=== PATIENT | female | born 1985 | race Caucasian/White ===

== ENCOUNTER 2019-09-05 17:41 | Emergency (ER) | payer SELFPAY ==
[~2019-09-05] VITALS: Ht 162.6 cm; Wt 58.2 kg
[2019-09-05 17:49] VITALS: Ht 162.6 cm; Wt 58.2 kg
[2019-09-05 19:08] LABS: CALC OSMOLALITY 279 mosm/kg (275-300); CALCIUM 9.1 mg/dL (8.5-10.1); CARBON DIOXIDE 26.2 mmol/L (21.0-32.0); CHLORIDE - SERUM 105 mmol/L (98-107); GLUCOSE 90 mg/dL (74-106); POTASSIUM - SERUM 4.1 mmol/L (3.5-5.1); SODIUM 141 mmol/L (136-145); UREA NITROGEN 10 mg/dL (7-18); eGFR NON AFRICAN AMERICAN 67 mL/min (90-120)
[2019-09-05 19:25] LABS: ALBUMIN 3.4 g/dL (3.4-5.0); ALKALINE PHOSPHATASE 143 U/L (30-120); ALT (SGPT) 359 U/L (10-68); BILIRUBIN - TOTAL 0.16 mg/dL (0.2-1.3); CKMB 4.8 U/L (0.0-3.6); CREATINE KINASE 140 UL (21-215); MAGNESIUM - SERUM 1.9 mg/dL (1.8-2.4); PRO BNP 59 pg/mL (0-125); TROPONIN-I < 0.017 ng/mL (0.000-0.060)
[2019-09-05] MEDS ORDERED: VANCOCIN HCL250 MG PO (21:54)
[2019-09-05 22:19] VITALS: BP 126/76
== END 2019-09-05 22:19 | disposition home or self-care (01) ==
LOC: D.ER 17:41
PROVIDERS: Family Medicine
DX: R05 Cough (principal); R50.9 Fever, unspecified; E84.9 Cystic fibrosis, unspecified; J45.909 Unspecified asthma, uncomplicated

== ENCOUNTER 2019-10-09 03:10 | Emergency (ER) | payer SELFPAY ==
[~2019-10-09] VITALS: Ht 162.6 cm; Wt 59.1 kg
[~2019-10-09 03:10] MED LIST: VANCOCIN HCL250 MG PO
[2019-10-09 03:14] VITALS: Ht 162.6 cm; Wt 59.1 kg
[2019-10-09 04:24] VITALS: BP 130/77
== END 2019-10-09 04:24 | disposition home or self-care (01) ==
LOC: D.ER 03:10
DX: S61.011A Laceration without foreign body of right thumb without damage to nail, initial encounter (principal); W25.XXXA Contact with sharp glass, initial encounter; Y93.9 Activity, unspecified; Y92.9 Unspecified place or not applicable